=== PATIENT | male | born 1965 | race African-American/Black ===

== ENCOUNTER 2021-12-17 09:32 | Emergency (ER) | payer BC ==
[~2021-12-17] VITALS: Ht 177.8 cm; Wt 85.0 kg
[2021-12-17 09:39] VITALS: BP 172/94
[2021-12-17] MEDS ORDERED: ACETAMINOPHEN 325MG TABLET PO ONE (09:45)
[2021-12-17] MEDS ORDERED: TOPUD PO (10:01)
[2021-12-17] MEDS ORDERED: AMLO5TAB88 PO (10:01)
[2021-12-17] MEDS ORDERED: SERT25TA PO (10:01)
[2021-12-17] MEDS ORDERED: CARV40CP7 PO (10:01)
[2021-12-17] MEDS ORDERED: TRAZ-251 PO (10:01)
[2021-12-17] MEDS ORDERED: ABIL5 PO (10:01)
[2021-12-17] MEDS ORDERED: TAMS-11 PO (10:01)
== END 2021-12-17 11:41 | disposition home or self-care (01) ==
LOC: ER 09:32
DX: F20.9 Schizophrenia, unspecified (principal); Z76.0 Encounter for issue of repeat prescription; S69.82XA Other specified injuries of left wrist, hand and finger(s), initial encounter; M54.9 Dorsalgia, unspecified; Y04.0XXA Assault by unarmed brawl or fight, initial encounter; Y93.89 Activity, other specified; Y92.89 Other specified places as the place of occurrence of the external cause; Z59.01 Sheltered homelessness
CPT/HCPCS: 73130; 99283

== ENCOUNTER 2022-03-06 21:05 | Emergency (ER) | payer BC ==
[~2022-03-06] VITALS: Ht 175.3 cm; Wt 85.2 kg
[~2022-03-06 21:05] MED LIST: ABIL5 PO; AMLO5TAB88 PO; CARV40CP7 PO; SERT25TA PO; TAMS-11 PO; TOPUD PO; TRAZ-251 PO
[2022-03-07] MEDS ORDERED: ACETAMINOPHEN 325MG TABLET PO ONE
[2022-03-07] MEDS ORDERED: HYDROCODONE/ACETAMINOPHEN 5/325MG TABLET PO ONE
[2022-03-07 00:49] VITALS: BP 137/101
[2022-03-07] MEDS ORDERED: TAMS-11 PO (01:31)
[2022-03-07] MEDS ORDERED: TRAZ-251 PO (01:31)
[2022-03-07] MEDS ORDERED: SERT25TA PO (01:31)
[2022-03-07] MEDS ORDERED: CARV40CP7 PO (01:31)
[2022-03-07] MEDS ORDERED: AMLO5TAB88 PO (01:31)
[2022-03-07] MEDS ORDERED: ABIL5 PO (01:31)
[2022-03-07] MEDS ORDERED: TOPUD PO (01:31)
== END 2022-03-07 02:00 | disposition home or self-care (01) ==
LOC: ER 21:05
DX: M54.2 Cervicalgia (principal); F41.9 Anxiety disorder, unspecified; F31.9 Bipolar disorder, unspecified; I10 Essential (primary) hypertension; Z90.49 Acquired absence of other specified parts of digestive tract; F12.10 Cannabis abuse, uncomplicated; F14.10 Cocaine abuse, uncomplicated
CPT/HCPCS: 72040; 99283

== ENCOUNTER 2022-07-17 19:55 | Inpatient (IN) | payer BC, MEDICAID ==
[~2022-07-17] VITALS: Ht 175.3 cm; Wt 78.9 kg
[2022-07-17] MEDS ORDERED: MORPHINE SULFATE 4 MG/ML CPJ (NOT FOR IM USE) IV STA (21:01)
[2022-07-17] MEDS ORDERED: ONDANSETRON HCL 4MG/2ML INJ IV STA (21:01)
[2022-07-17] MEDS ORDERED: SODIUM CHLORIDE 0.9% 1,000 ML IV ONE (21:15)
[2022-07-17 21:40] LABS: BASOPHILS % 0.3 % (0.0-2.0); EOSINOPHILS % 0.2 % (0.0-5.0); HEMATOCRIT. 34.9 % (42.0-52.0); HEMOGLOBIN. 11.2 g/dL (14.0-18.0); MEAN CORPUSCULAR VOLUME 87.7 fL (80.0-94.0); MEAN PLATELET VOLUME 7.7 fl (7.4-10.4); MONOCYTES % 6.6 % (2.0-8.0); NEUTROPHILS % 75.9 % (40.0-76.0); PLATELET 463 x1000/uL (130-400); RED BLOOD CELL COUNT 3.98 mill/uL (4.7-6.1); RED CELL DISTRIBUTION WIDTH 16.9 % (11.6-14.6)
[2022-07-17 21:43] LABS: CLARITY URINE CLEAR (CLEAR); COLOR URINE YELLOW (YELLOW); KETONES URINE NEGATIVE (NEGATIVE); LEUKOCYTE ESTERASE URINE NEGATIVE (NEGATIVE); NITRITE URINE NEGATIVE (NEGATIVE); OCCULT BLOOD URINE NEGATIVE (NEGATIVE); PROTEIN URINE NEGATIVE (NEGATIVE); SPECIFIC GRAVITY URINE 1.015 (1.005-1.030); UROBILINOGEN URINE 0.2 E.U./dL (0.2-1.0)
[2022-07-17 21:49] LABS: CHLORIDE 99 mEq/L (98-107)
[2022-07-17] MEDS ORDERED: CEFTRIAXONE 1 G PREMIX 50 ML IV ONE (23:00)
[2022-07-17] MEDS ORDERED: SODIUM CHLORIDE 0.9% 1000ML BAG (SEPSIS BOLUS) IV ONE (23:00)
[2022-07-17] MEDS ORDERED: AZITHROMYCIN 500MG/250ML 250 ML IV ONE (23:00)
[2022-07-18] MEDS ORDERED: ONDANSETRON HCL 4MG/2ML INJ IV STA (01:10)
[2022-07-18] MEDS ORDERED: MORPHINE SULFATE 4 MG/ML CPJ (NOT FOR IM USE) IV STA (01:10)
[2022-07-18 05:45] VITALS: BP 133/87
[2022-07-18] MEDS ORDERED: ALBU18HF2 IH (06:54)
[2022-07-18] MEDS ORDERED: DIPH25CA83 MT (06:54)
[2022-07-18] MEDS ORDERED: PANT20TA17 MT (06:54)
[2022-07-18 07:03] VITALS: BP 133/87
[2022-07-18 08:00] VITALS: BP 148/91
[2022-07-18] MEDS ORDERED: NALOXONE HCL 0.4MG/ML VIAL IV PRN (10:00)
[2022-07-18] MEDS ORDERED: MORPHINE SULFATE 2 MG/ML CPJ (NOT FOR IM USE) IV PRN (10:00)
[2022-07-18] MEDS: HYDROCODONE/ACETAMINOPHEN 5/325MG TABLET PO PRN ×3 (11:32→23:49)
[2022-07-18] MEDS: LORAZEPAM 0.5MG TABLET PO PRN ×3 (11:35→23:49)
[2022-07-18 11:51] VITALS: BP 138/83
[2022-07-18] MEDS ORDERED: CLONIDINE 0.1MG TABLET PO PRN (14:00)
[2022-07-18] MEDS ORDERED: DOCUSATE SODIUM 100MG CAPSULE PO PRN (14:00)
[2022-07-18] MEDS ORDERED: ACETAMINOPHEN 325MG TABLET PO PRN ×2 (14:00)
[2022-07-18] MEDS ORDERED: ONDANSETRON HCL 4MG/2ML INJ IV PRN (14:00)
[2022-07-18] MEDS ORDERED: IPRATROPIUM/ALBUTEROL 0.5-3(2.5)MG/3ML NEB HHN PRN (14:00)
[2022-07-18] MEDS: PANTOPRAZOLE 40MG DR TABLET PO SCH (14:53)
[2022-07-18] MEDS: AMLODIPINE 5MG TABLET PO SCH (14:53)
[2022-07-18] MEDS: SERTRALINE HCL 25MG TABLET PO SCH (14:53)
[2022-07-18] MEDS: TAMSULOSIN HCL 0.4MG SR CAPSULE PO SCH (14:53)
[2022-07-18 20:15] VITALS: BP 150/98
[2022-07-18] MEDS: GUAIFENESIN 600MG ER TABLET PO SCH (20:36)
[2022-07-18] MEDS ORDERED: TRAZODONE HCL 50MG TABLET PO SCH (21:00)
[2022-07-19] VITALS: BP 153/95
[2022-07-19 00:58] LABS: *AMPHETAMINES SCREEN URINE NEGATIVE (NEGATIVE); *BARBITURATES SCREEN URINE NEGATIVE (NEGATIVE); *BENZODIAZEPINES SCREEN URINE NEGATIVE (NEGATIVE); *COCAINE SCREEN URINE PRESUMTIVE POSITIVE (NEGATIVE); CANNABINOID URINE SCREEN PRESUMTIVE POSITIVE (NEGATIVE); METHADONE URINE SCREEN NEGATIVE (NEGATIVE); OPIATES URINE SCREEN NEGATIVE (NEGATIVE); PHENCYCLIDINE URINE SCREEN NEGATIVE (NEGATIVE)
[2022-07-19 04:00] VITALS: BP 144/95
[2022-07-19 04:52] LABS: CHLORIDE 100 mEq/L (98-107)
[2022-07-19 06:34] LABS: BASOPHILS % 0.6 % (0.0-2.0); EOSINOPHILS % 2.5 % (0.0-5.0); HEMATOCRIT. 29.9 % (42.0-52.0); HEMOGLOBIN. 9.8 g/dL (14.0-18.0); LYMPHOCYTES % 40.1 % (20.0-50.0); MEAN CORPUSCULAR HEMOGLOBIN 28.5 pg (28.0-32.0); MEAN CORPUSCULAR VOLUME 86.9 fL (80.0-94.0); MEAN PLATELET VOLUME 8.2 fl (7.4-10.4); MONOCYTES % 8.6 % (2.0-8.0); NEUTROPHILS % 48.2 % (40.0-76.0); PLATELET 380 x1000/uL (130-400); RED BLOOD CELL COUNT 3.44 mill/uL (4.7-6.1)
[2022-07-19] MEDS: PANTOPRAZOLE 40MG DR TABLET PO SCH (07:13)
[2022-07-19 08:00] VITALS: BP 137/76
[2022-07-19] MEDS ORDERED: ARIPIPRAZOLE 5MG TABLET PO SCH (09:00)
[2022-07-19 09:03] VITALS: BP 137/76
[2022-07-19] MEDS: AMLODIPINE 5MG TABLET PO SCH (09:03)
[2022-07-19] MEDS: HYDROCODONE/ACETAMINOPHEN 5/325MG TABLET PO PRN (09:03)
[2022-07-19] MEDS: TAMSULOSIN HCL 0.4MG SR CAPSULE PO SCH (09:03)
[2022-07-19] MEDS: LORAZEPAM 0.5MG TABLET PO PRN (09:04)
[2022-07-19] MEDS: SERTRALINE HCL 25MG TABLET PO SCH (09:04)
[2022-07-19] MEDS: GUAIFENESIN 600MG ER TABLET PO SCH (09:04)
[2022-07-20] MEDS ORDERED: HYDR-4001 MT (01:38)
[2022-07-20] MEDS ORDERED: PROT20 MT (02:09)
== END 2022-07-19 13:24 | disposition left against medical advice (07) | DRG 358 ==
LOC: ER 19:55 → 8WST 07-18 00:06 → EDBEDREQTM 07-18 00:09 → EDBEDREQ 07-18 00:09 → ENRESERV 07-18 03:16
PROVIDERS: ADMIT Internal Medicine; ATTEND Internal Medicine
PROC: 0JBN0ZZ Excision of Right Lower Leg Subcutaneous Tissue and Fascia, Open Approach (ICD-10-PCS; principal; 2022-07-19)
DX: K56.699 Other intestinal obstruction unspecified as to partial versus complete obstruction (principal); I25.10 Atherosclerotic heart disease of native coronary artery without angina pectoris; D64.9 Anemia, unspecified; I11.9 Hypertensive heart disease without heart failure; I16.0 Hypertensive urgency; J44.9 Chronic obstructive pulmonary disease, unspecified; I71.9 Aortic aneurysm of unspecified site, without rupture; S81.811A Laceration without foreign body, right lower leg, initial encounter; F12.90 Cannabis use, unspecified, uncomplicated; F14.90 Cocaine use, unspecified, uncomplicated; Z90.49 Acquired absence of other specified parts of digestive tract; Z53.29 Procedure and treatment not carried out because of patient's decision for other reasons; Z79.899 Other long term (current) drug therapy; I25.2 Old myocardial infarction; X58.XXXA Exposure to other specified factors, initial encounter; Y93.89 Activity, other specified; Y92.89 Other specified places as the place of occurrence of the external cause; Y99.8 Other external cause status
CPT/HCPCS: 36415; 71045; 74176; 80048; 80053; 80305; 81003; 83605; 83880; 84484; 85025; 87426; 87493; 93005; 99285; C9803; J0456; J0696; J2270; J2405; J7030

== ENCOUNTER 2022-07-19 20:52 | Emergency (ER) | payer BC, MEDICAID ==
[~2022-07-19] VITALS: Ht 175.3 cm; Wt 87.0 kg
[~2022-07-19 20:52] MED LIST changes: +ALBU18HF2 IH; +DIPH25CA83 MT; +PANT20TA17 MT
[2022-07-20] MEDS ORDERED: HYDROCODONE/ACETAMINOPHEN 5/325MG TABLET PO ONE
[2022-07-20 00:52] VITALS: BP 150/91
[2022-07-20] MEDS ORDERED: HYDR-4001 MT (01:38)
[2022-07-20] MEDS ORDERED: PROT20 MT (02:09)
== END 2022-07-20 02:22 | disposition home or self-care (01) ==
LOC: ER 21:25
DX: R10.32 Left lower quadrant pain (principal); I10 Essential (primary) hypertension; I25.2 Old myocardial infarction; F14.10 Cocaine abuse, uncomplicated; F12.10 Cannabis abuse, uncomplicated; Z79.899 Other long term (current) drug therapy
CPT/HCPCS: 36415; 71045; 84484; 93005; 99285

== ENCOUNTER 2022-10-08 09:31 | Inpatient (IN) | payer BC, MEDICAID ==
[~2022-10-08] VITALS: Ht 175.3 cm; Wt 86.2 kg
[~2022-10-08 09:31] MED LIST changes: +HYDR-4001 MT; +PROT20 MT; -TOPUD PO
[2022-10-08] MEDS ORDERED: ONDANSETRON HCL 4MG/2ML INJ IV STA (09:43)
[2022-10-08] MEDS ORDERED: FAMOTIDINE 20MG/2ML VIAL IV STA (09:43)
[2022-10-08] MEDS ORDERED: SODIUM CHLORIDE 0.9% 500 ML IV ONE (09:45)
[2022-10-08] MEDS ORDERED: ASPIRIN 81MG TABLET PO ONE (10:00)
[2022-10-08 10:15] LABS: BASOPHILS % 1.1 % (0.0-2.0); EOSINOPHILS % 1.7 % (0.0-5.0); HEMATOCRIT. 33.8 % (42.0-52.0); HEMOGLOBIN. 10.7 g/dL (14.0-18.0); LYMPHOCYTES % 24.3 % (20.0-50.0); MEAN CORPUSCULAR HEMOGLOBIN 26.6 pg (28.0-32.0); MEAN CORPUSCULAR VOLUME 83.7 fL (80.0-94.0); MEAN PLATELET VOLUME 7.7 fl (7.4-10.4); MONOCYTES % 6.2 % (2.0-8.0); NEUTROPHILS % 66.7 % (40.0-76.0); PLATELET 331 x1000/uL (130-400); RED BLOOD CELL COUNT 4.04 mill/uL (4.7-6.1); RED CELL DISTRIBUTION WIDTH 18.6 % (11.6-14.6)
[2022-10-08 10:26] LABS: CHLORIDE 108 mEq/L (98-107)
[2022-10-08 10:38] LABS: ETHANOL BLOOD < 10 mg/dL
[2022-10-08] MEDS ORDERED: PIPERACILLIN/TAZ 3.375G PREMIX 50 ML IV ONE (11:15)
[2022-10-08] MEDS ORDERED: IOHEXOL-300 100 ML BOTTLE ONE (12:14)
[2022-10-08 12:51] LABS: INR 1.1; PROTHROMBIN TIME 11.4 sec (9.6-11.0)
[2022-10-08 16:00] VITALS: BP_SYST 142; BP_SYST 157; BP_DIAS 83; BP_DIAS 86
[2022-10-08] MEDS ORDERED: CLONIDINE 0.1MG TABLET PO PRN (16:30)
[2022-10-08] MEDS ORDERED: IPRATROPIUM/ALBUTEROL 0.5-3(2.5)MG/3ML NEB HHN PRN (16:30)
[2022-10-08] MEDS ORDERED: IPRATROPIUM BROMIDE (0.02%) 0.5MG/2.5ML NEB HHN PRN (16:30)
[2022-10-08] MEDS ORDERED: ONDANSETRON HCL 4MG/2ML INJ IV PRN (16:30)
[2022-10-08] MEDS ORDERED: ACETAMINOPHEN 325MG TABLET PO PRN (16:30)
[2022-10-08] MEDS ORDERED: ALBUTEROL (0.083%) 2.5MG/3ML NEB HHN PRN (16:30)
[2022-10-08] MEDS: SODIUM CHLORIDE 0.9% 1,000 ML IV SCH (17:28)
[2022-10-08] MEDS: MORPHINE SULFATE 2 MG/ML CPJ (NOT FOR IM USE) IV PRN (19:53)
[2022-10-08 20:00] VITALS: BP 155/56
[2022-10-08] MEDS: DIPHENHYDRAMINE 50MG/ML VIAL IV PRN (20:27)
[2022-10-09] VITALS: BP 118/67
[2022-10-09] MEDS: MORPHINE SULFATE 2 MG/ML CPJ (NOT FOR IM USE) IV PRN ×2 (02:19→08:46)
[2022-10-09] MEDS: DIPHENHYDRAMINE 50MG/ML VIAL IV PRN (02:39)
[2022-10-09] MEDS: SODIUM CHLORIDE 0.9% 1,000 ML IV SCH (03:37)
[2022-10-09 06:42] LABS: BASOPHILS % 0.4 % (0.0-2.0); EOSINOPHILS % 0.1 % (0.0-5.0); HEMATOCRIT. 29.1 % (42.0-52.0); HEMOGLOBIN. 9.5 g/dL (14.0-18.0); LYMPHOCYTES % 31.5 % (20.0-50.0); MEAN CORPUSCULAR HEMOGLOBIN 26.9 pg (28.0-32.0); MEAN CORPUSCULAR VOLUME 82.3 fL (80.0-94.0); MEAN PLATELET VOLUME 7.9 fl (7.4-10.4); MONOCYTES % 5.5 % (2.0-8.0); NEUTROPHILS % 62.5 % (40.0-76.0); PLATELET 279 x1000/uL (130-400); RED BLOOD CELL COUNT 3.53 mill/uL (4.7-6.1); RED CELL DISTRIBUTION WIDTH 18.7 % (11.6-14.6)
[2022-10-09 07:38] LABS: CHLORIDE 108 mEq/L (98-107)
[2022-10-09 08:00] VITALS: BP 164/82
[2022-10-09] MEDS ORDERED: SERT25TA PO (09:55)
[2022-10-09] MEDS ORDERED: ABIL5 PO (09:55)
[2022-10-09] MEDS ORDERED: TAMS-11 PO (09:55)
[2022-10-09] MEDS ORDERED: CARV40CP7 PO (09:55)
[2022-10-09] MEDS ORDERED: HYDR-4001 MT (09:55)
[2022-10-09] MEDS ORDERED: PANT20TA17 MT (09:55)
[2022-10-09] MEDS ORDERED: AMLO5TAB88 PO (09:55)
[2022-10-09 10:57] VITALS: BP 164/82
== END 2022-10-09 11:00 | disposition home or self-care (01) | DRG 389 ==
LOC: ER 09:31 → 8WST 11:19 → EDBEDREQ 11:26 → EDBEDREQTM 11:28 → EDBEDREQ 11:28 → ENRESERV 12:30
PROVIDERS: ADMIT Internal Medicine; ATTEND Internal Medicine
DX: K56.609 Unspecified intestinal obstruction, unspecified as to partial versus complete obstruction (principal); K55.9 Vascular disorder of intestine, unspecified; I10 Essential (primary) hypertension; Z20.822 Contact with and (suspected) exposure to COVID-19; Z79.899 Other long term (current) drug therapy; I25.2 Old myocardial infarction; Z82.49 Family history of ischemic heart disease and other diseases of the circulatory system; K63.89 Other specified diseases of intestine
CPT/HCPCS: 36415; 71045; 74018; 74176; 80053; 80320; 83880; 84484; 85025; 87426; 93970; 99291; C9803; J1200; J2270; J2405; J2543; J3490; J7030; J7040; Q9967; G0480